=== PATIENT | female | born 1970 | race Caucasian/White ===

== ENCOUNTER → 2016-10-21 | Outpatient (CLI) | payer BC ==
[~2016-10-21] MED LIST: NS 100 ML IV 100 ML IV ONE
--- NOTE | 2016-10-25 07:18 | CT ---
CT angiogram of the neck without and with contrast Indication: History of neck fullness and headache. History of meningioma in the right neck postradiat ion therapy in the past. Possible ICA occlusion on the right. Comparison: Ultrasound from October 18, 2016. Technique: Helical images through the neck before and after IV contrast. Coronal and sagittal reforma ts provided. MIP images provided. Findings: Limited images through the upper chest demonstrates if no acute abnormality. Review of bone windows demonstrates clear visualized paranasal sinuses and mastoid air cells. There is minimal disk degenerative change at C5-C6 without high-grade stenosis. The aortic arch and branch vessels are patent, though bolus timing is poor. Both vertebral arteries a re normal. If the left common carotid artery, internal carotid artery and external carotid artery are patent in the neck. The left ICA is patent throughout the skullbase. The right common carotid artery is patent and normal without plaque. The right ECA is patent. Just distal to the bulb on axial image 71 through 73, there is complete occlusion of the right trestle mainternance laborer al carotid artery. No flow seen within the skullbase portions of the right internal carotid artery. T his is occluded all the way to the [place]. Intracranial circulation. Bolus timing is poor but the anterior cerebral arteries appear patent. 2 se parate arteries cannot be convincingly demonstrated. The left MCA and distal branches appears normal. The right MCA shows asymmetric decreased flow compared to the left, with decreased size as well. 's minimal flow is seen in the ophthalmic/supra clinoid segment of the right ICA. The basilar artery and posterior cerebral arteries appear normal. Tiny right posterior communicating artery is possibly pat ent. The anterior [place] with probably patent anterior communicating artery is likely suppl joey most of the flow to the right MCA and MEL. Impression: 1. 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 2. Asymmetric slightly decreased flow to the right MCA territory, probably mostly supplied via an ant erior communicating artery at the [place] from the left internal carotid circulation. Poor b olus timing limits further analysis to evaluate the posterior communicating artery for patency. The p atient will be at risk for stroke on the right side. Acute stroke cannot be excluded depending on sym ptoms. 3. There is no plaque. Presumably the right ICA is occluded due to history of radiation therapy in [facility] region. 4. Consider MRA brain followup to better evaluate the internal carotid circulation. CT angiogram brai n may be helpful as well, assuming better bolus timing on repeat imaging. Reported By:
== END | disposition home or self-care (01) ==
LOC: RAD 12:54
PROVIDERS: ATTEND Nurse Practitioner
DX: I65.21 Occlusion and stenosis of right carotid artery (principal)
CPT/HCPCS: 70498; A4222